=== PATIENT | male | born 1935 | race Caucasian/White ===

== ENCOUNTER → 2016-09-15 | Outpatient (CLI) | payer MEDICARE, BC ==
[~2016-09-15] MED LIST: ALLEGRA60 MG PO; AMOXICILLIN/CLA1 TA1 PO; ASPIRIN 32325 MG/TAB PO; B-COMPLEX PLUS1 TAB PO; CARDI-OMEGA1000 MG PO; CELEBREX PO; CEPHALEXIN250 M1 PO; CEPHALEXIN500 M1 PO; CO Q-1050 MG PO; COUMADIN7.5 MG PO; GABAPENTIN100 MG PO; LEVOTHYROXINE PO; MUCINEX600 M1 PO; OSTEO-BI-FLEX 21 TAB PO; PHENERGAN1.25 MG/ML PO; PRILOSEC 20MG20 MG PO; SIMVASTATIN40 MG PO; TAMIFLU75 MG PO; THYROID; TYLENOL PM 5001 CAP PO; [UNRECOGNIZED DRUG - OTHER]
== END ==
LOC: COL.RAD 08:15
DX: M50.21 Other cervical disc displacement, high cervical region (principal)

== ENCOUNTER → 2016-12-10 | Outpatient (CLI) | payer MEDICARE, BC | LOC: COL.RAD 12-01 12:45 | DX: R22.41 Localized swelling, mass and lump, right lower limb (principal) ==

== ENCOUNTER 2017-04-13 17:07 | Emergency (ER) | payer MEDICARE, BC ==
[~2017-04-13] VITALS: Ht 180.3 cm; Wt 98.2 kg
[2017-04-13 17:11] VITALS: BP 128/76; TEMP 98.1
[2017-04-13] MEDS ORDERED: NORVASC 5MG5 MG/TAB PO (17:48)
[2017-04-13] MEDS ORDERED: CYMBALTA 60MG60 MG PO (17:48)
[2017-04-13] MEDS ORDERED: PLAVIX 75MG TAB75 MG PO (17:48)
[2017-04-13 18:24] VITALS: PULSE 52
== END 2017-04-13 18:24 | disposition home or self-care (01) ==
LOC: COL.ER 17:07
DX: S01.02XA Laceration with foreign body of scalp, initial encounter (principal); I10 Essential (primary) hypertension; E03.9 Hypothyroidism, unspecified; Z79.82 Long term (current) use of aspirin; Z79.02 Long term (current) use of antithrombotics/antiplatelets; Z23 Encounter for immunization; W01.198A Fall on same level from slipping, tripping and stumbling with subsequent striking against other object, initial encounter; Y92.009 Unspecified place in unspecified non-institutional (private) residence as the place of occurrence of the external cause

== ENCOUNTER 2017-04-21 14:32 | Emergency (ER) | payer MEDICARE, BC ==
[~2017-04-21 14:32] MED LIST changes: +CYMBALTA 60MG60 MG PO; -LEVOTHYROXINE PO; +NORVASC 5MG5 MG/TAB PO; +PLAVIX 75MG TAB75 MG PO; +SYNTHROID0.2 MG/TAB PO
[2017-04-21 14:35] VITALS: BP 176/83; PULSE 53; TEMP 98.1
== END 2017-04-21 14:40 | disposition home or self-care (01) ==
LOC: COL.ER 14:32
DX: S01.01XD Laceration without foreign body of scalp, subsequent encounter (principal); X58.XXXD Exposure to other specified factors, subsequent encounter

== ENCOUNTER 2017-05-17 15:21 | Emergency (ER) | payer MEDICARE, BC ==
[~2017-05-17] VITALS: Ht 180.3 cm; Wt 98.2 kg
[2017-05-17 15:24] VITALS: BP 158/80; TEMP 97.9
[2017-05-17] MEDS ORDERED: ASPIRIN 81M81 MG/TA2 PO (15:53)
[2017-05-17] MEDS ORDERED: ULTRAM 50MG TAB50 MG PO (15:54)
[2017-05-17] MEDS ORDERED: CELEBREX 1100 MG/CAP PO (15:55)
[2017-05-17] MEDS ORDERED: ZOVIRAX800 MG PO (15:56)
[2017-05-17] MEDS ORDERED: NORCO 325 MG-101 TAB PO (15:57)
[2017-05-17 16:18] LABS: BASO % 0.4 % (0.0-2.0); EOS # 0.1 (0.0-0.7); EOS % 1.8 % (0-4.0); GRAN # 4.5 (1.4-6.5); GRAN % 63.8 % (42.2-75.2); HEMATOCRIT 43.7 % (42.0-52.0); HEMOGLOBIN 14.9 g/dl (13.5-18.0); LYMPH # 1.7 (1.2-3.4); LYMPH % 24.5 % (20.0-51.0); MEAN CELL VOLUME 93 fl (80.0-100.0); MEAN CORPUSCULAR HEMOGLOBIN 32 pg (27.0-31.0); MEAN CORPUSCULAR HGB CONC 34 g/dl (33.0-37.0); MEAN PLATELET VOLUME 9.5 fl (7.4-10.4); MONO # 0.7 (0.1-0.6); MONO % 9.2 % (1.7-9.3); PLATELET COUNT 218 K/mm3 (130-400); RED BLOOD COUNT 4.68 M/mm3 (4.20-5.60); WHITE BLOOD COUNT 7.1 K/mm3 (4.8-10.8)
[2017-05-17 16:24] LABS: ANION GAP 9 mmol/L (7-16); BLOOD UREA NITROGEN 31 mg/dL (9-20); C-REACTIVE PROTEIN < 0.5 mg/dL (0.0-0.9); CALCIUM 9.5 mg/dL (8.4-10.2); CARBON DIOXIDE 22 mmol/L (22-30); CHLORIDE 106 mmol/L (98-107); CREATININE, serum 1.33 mg/dL (0.66-1.25); GLUCOSE 110 mg/dL (74-106); POTASSIUM 4.4 mmol/L (3.4-5.0); SODIUM 137 mmol/L (137-145)
[2017-05-17 16:40] LABS: ERYTHROCYTE SEDIMENTATION RATE 5 mm/hr (0-30)
[2017-05-17] MEDS ORDERED: PREDNISONE20 MG PO (16:54)
[2017-05-17] MEDS ORDERED: PERCOCET 325 MG1 TA2 PO (16:54)
[2017-05-17 17:10] VITALS: PULSE 56
== END 2017-05-17 17:10 | disposition home or self-care (01) ==
LOC: COL.ER 15:21
PROVIDERS: Emergency Medicine
DX: M79.2 Neuralgia and neuritis, unspecified (principal); I10 Essential (primary) hypertension
CPT/HCPCS: J7512

== ENCOUNTER → 2017-05-27 | Outpatient (CLI) | payer MEDICARE, BC ==
[~2017-05-27] MED LIST changes: +ASPIRIN 81M81 MG/TA2 PO; +CELEBREX 1100 MG/CAP PO; +NORCO 325 MG-101 TAB PO; +PERCOCET 325 MG1 TA2 PO; +PREDNISONE20 MG PO; +ULTRAM 50MG TAB50 MG PO; +ZOVIRAX800 MG PO
== END ==
LOC: COL.RAD 06:57
DX: G31.9 Degenerative disease of nervous system, unspecified (principal); I67.82 Cerebral ischemia; S09.90XA Unspecified injury of head, initial encounter
CPT/HCPCS: A9585

== ENCOUNTER → 2017-07-14 | Outpatient (CLI) | payer MEDICARE, BC | LOC: MHCPAIN 10:49 | DX: G89.29 Other chronic pain (principal); M50.11 Cervical disc disorder with radiculopathy, high cervical region; R51 Headache; M54.81 Occipital neuralgia; M19.049 Primary osteoarthritis, unspecified hand | CPT/HCPCS: G0463 ==

== ENCOUNTER → 2017-07-17 | Outpatient (CLI) | payer MEDICARE, BC ==
[~2017-07-17] MED LIST changes: +BENADRYL25 M2 PO; +FD GARD PO; +FISH OIL 500 M1 EAC1 PO; +FLONASEALLERGY NS; +GAS RELIEF180 MG PO; +ISTALOL 2.5 ML2.5 ML OU; +MULTI VITAMINS1 TAB PO; +NEILMED SINUS R1 PKT NAS; +PATANOL OPHTHALM5 ML OU; +XALATAN EYE DROPS OS; +ZANTAC 300300 MG PO
== END ==
LOC: MHCPAIN 08:06
DX: M54.81 Occipital neuralgia (principal)
CPT/HCPCS: J1100

== ENCOUNTER 2017-07-21 07:07 | Day surgery (SDC) | payer MEDICARE, BC ==
[~2017-07-21] VITALS: Ht 180.3 cm; Wt 99.6 kg
[~2017-07-21 07:07] MED LIST changes: -BENADRYL25 M2 PO; -FD GARD PO; -FISH OIL 500 M1 EAC1 PO; -FLONASEALLERGY NS; -GAS RELIEF180 MG PO; -ISTALOL 2.5 ML2.5 ML OU; -MULTI VITAMINS1 TAB PO; -NEILMED SINUS R1 PKT NAS; -PATANOL OPHTHALM5 ML OU; -XALATAN EYE DROPS OS; -ZANTAC 300300 MG PO
[2017-07-21] MEDS ORDERED: ISTALOL 2.5 ML2.5 ML OU (07:32)
[2017-07-21] MEDS ORDERED: PATANOL OPHTHALM5 ML OU (07:33)
[2017-07-21] MEDS ORDERED: XALATAN EYE DROPS OS (07:33)
[2017-07-21] MEDS ORDERED: ZANTAC 300300 MG PO (07:34)
[2017-07-21] MEDS ORDERED: FLONASEALLERGY NS (07:36)
[2017-07-21] MEDS ORDERED: BENADRYL25 M2 PO (07:37)
[2017-07-21] MEDS ORDERED: NEILMED SINUS R1 PKT NAS (07:37)
[2017-07-21] MEDS ORDERED: FISH OIL 500 M1 EAC1 PO (07:39)
[2017-07-21] MEDS ORDERED: MULTI VITAMINS1 TAB PO (07:40)
[2017-07-21] MEDS ORDERED: GAS RELIEF180 MG PO (07:40)
[2017-07-21] MEDS ORDERED: FD GARD PO (07:44)
[2017-07-21 08:07] VITALS: BP 142/83; PULSE 63; TEMP 97.7
[2017-07-21 09:35] VITALS: BP 121/75; PULSE 57; TEMP 97.7
[2017-07-21 09:50] VITALS: BP 120/67; PULSE 58
[2017-07-21 10:05] VITALS: BP 101/62; PULSE 57
[2017-07-21 10:20] VITALS: BP 124/62; PULSE 58
[2017-07-21 10:24] VITALS: BP 126/79; PULSE 55
== END 2017-07-21 11:00 | disposition home or self-care (01) ==
LOC: SDCO 07:07
DX: D12.3 Benign neoplasm of transverse colon (principal); D12.4 Benign neoplasm of descending colon; D12.5 Benign neoplasm of sigmoid colon; K57.30 Diverticulosis of large intestine without perforation or abscess without bleeding; K64.0 First degree hemorrhoids; K21.9 Gastro-esophageal reflux disease without esophagitis; K30 Functional dyspepsia; Z86.010 Personal history of colon polyps; K31.7 Polyp of stomach and duodenum; K22.2 Esophageal obstruction; K44.9 Diaphragmatic hernia without obstruction or gangrene
CPT/HCPCS: OP; C1726; J2250; J3010; J7030

== ENCOUNTER → 2017-07-31 | Outpatient (CLI) | payer MEDICARE, BC ==
[~2017-07-31] MED LIST changes: +BENADRYL25 M2 PO; +FD GARD PO; +FISH OIL 500 M1 EAC1 PO; +FLONASEALLERGY NS; +GAS RELIEF180 MG PO; +ISTALOL 2.5 ML2.5 ML OU; +MULTI VITAMINS1 TAB PO; +NEILMED SINUS R1 PKT NAS; +PATANOL OPHTHALM5 ML OU; +XALATAN EYE DROPS OS; +ZANTAC 300300 MG PO
== END ==
LOC: MHCPAIN 08:58
DX: G89.29 Other chronic pain (principal); M50.11 Cervical disc disorder with radiculopathy, high cervical region; M54.81 Occipital neuralgia
CPT/HCPCS: G0463

== ENCOUNTER → 2017-08-05 | Outpatient (CLI) | payer MEDICARE, BC | LOC: MHCPAIN 08:29 | DX: M54.81 Occipital neuralgia (principal) | CPT/HCPCS: J1040 ==

== ENCOUNTER → 2017-09-30 | Outpatient (CLI) | payer MEDICARE, BC | LOC: MHCPAIN 09:02 | DX: G89.29 Other chronic pain (principal); M50.30 Other cervical disc degeneration, unspecified cervical region; M54.81 Occipital neuralgia | CPT/HCPCS: G0463 ==

== ENCOUNTER → 2017-11-03 | Outpatient (CLI) | payer MEDICARE, BC | LOC: COL.VAS 14:29 | DX: M79.662 Pain in left lower leg (principal); R60.9 Edema, unspecified ==

== ENCOUNTER → 2017-12-29 | Outpatient (CLI) | payer MEDICARE, BC | LOC: COL.RAD 10:14 | DX: M47.812 Spondylosis without myelopathy or radiculopathy, cervical region (principal); M43.12 Spondylolisthesis, cervical region ==

== ENCOUNTER → 2017-12-29 | Outpatient (CLI) | payer MEDICARE, BC | LOC: MHCPAIN 09:15 | DX: G89.29 Other chronic pain (principal); M50.31 Other cervical disc degeneration, high cervical region; M54.12 Radiculopathy, cervical region; M54.81 Occipital neuralgia; R51 Headache | CPT/HCPCS: G0463 ==

== ENCOUNTER → 2018-01-27 | Outpatient (CLI) | payer MEDICARE, BC | LOC: MHCPAIN 14:55 | DX: G89.29 Other chronic pain (principal); M50.90 Cervical disc disorder, unspecified, unspecified cervical region; M54.81 Occipital neuralgia; R51 Headache | CPT/HCPCS: G0463 ==

== ENCOUNTER 2018-03-12 17:48 | Emergency (ER) | payer MEDICARE, BC ==
[~2018-03-12] VITALS: Ht 180.3 cm; Wt 98.2 kg
[2018-03-12 17:54] VITALS: TEMP 97.7
[2018-03-12] MEDS ORDERED: ALTACE 2.5MG T2.5 MG PO (18:34)
[2018-03-12] MEDS ORDERED: LIVALO4 MG PO (18:35)
[2018-03-12 19:45] VITALS: BP 175/98; PULSE 48
== END 2018-03-12 19:45 | disposition home or self-care (01) ==
LOC: COL.ER 17:48
DX: S43.402A Unspecified sprain of left shoulder joint, initial encounter (principal); S80.02XA Contusion of left knee, initial encounter; S80.01XA Contusion of right knee, initial encounter; K21.9 Gastro-esophageal reflux disease without esophagitis; E78.5 Hyperlipidemia, unspecified; E03.9 Hypothyroidism, unspecified; Z96.653 Presence of artificial knee joint, bilateral; Z79.82 Long term (current) use of aspirin; Z79.891 Long term (current) use of opiate analgesic; W01.0XXA Fall on same level from slipping, tripping and stumbling without subsequent striking against object, initial encounter; Y92.009 Unspecified place in unspecified non-institutional (private) residence as the place of occurrence of the external cause

== ENCOUNTER → 2018-05-11 | Outpatient (CLI) | payer MEDICARE, BC ==
[~2018-05-11] MED LIST changes: +ALTACE 2.5MG T2.5 MG PO; +LIVALO4 MG PO
== END ==
LOC: COL.RAD 09:04
DX: M54.41 Lumbago with sciatica, right side (principal)
CPT/HCPCS: J3301; Q9967

== ENCOUNTER → 2018-06-01 | Outpatient (CLI) | payer MEDICARE, BC | LOC: COL.RAD 12:01 | DX: S76.811A Strain of other specified muscles, fascia and tendons at thigh level, right thigh, initial encounter (principal) ==

== ENCOUNTER → 2018-06-08 | Outpatient (CLI) | payer MEDICARE, BC | LOC: COL.RAD 14:08 | DX: M25.551 Pain in right hip (principal) | CPT/HCPCS: J3301; Q9967 ==

== ENCOUNTER 2018-07-06 14:43 | Inpatient (IN) | payer MEDICARE, BC ==
[~2018-07-06] VITALS: Ht 180.3 cm; Wt 101.5 kg
[2018-07-06 15:15] LABS: BASO % 0.5 % (0.0-2.0); EOS # 0.2 (0.0-0.7); GRAN # 4.6 (1.4-6.5); GRAN % 58.2 % (42.2-75.2); HEMOGLOBIN 13.8 g/dl (13.5-18.0); LYMPH # 1.9 (1.2-3.4); LYMPH % 24.2 % (20.0-51.0); MEAN CELL VOLUME 95 fl (80.0-100.0); MEAN CORPUSCULAR HEMOGLOBIN 33 pg (27.0-31.0); MEAN CORPUSCULAR HGB CONC 35 g/dl (33.0-37.0); MONO # 1.2 (0.1-0.6); MONO % 14.8 % (1.7-9.3); PLATELET COUNT 184 K/mm3 (130-400); RED BLOOD COUNT 4.21 M/mm3 (4.20-5.60); REDCELL DISTRIBUTION WIDTH-CV 13.8 % (11.5-14.5)
[2018-07-06 15:26] LABS: PROTHROMBIN TIME 10.9 SECONDS (9.7-12.8)
[2018-07-06] MEDS ORDERED: HCTZ12.5TAB PO (15:26)
[2018-07-06] MEDS ORDERED: COZAAR 50MG50 MG/TAB PO (15:26)
[2018-07-06 15:30] LABS: ALANINE AMINOTRANSFERASE 13 U/L (21-72); ALBUMIN 3.8 gm/dL (3.5-5.0); ALKALINE PHOSPHATASE 60 U/L (50-136); ANION GAP 6 mmol/L (7-16); AST,SGOT 21 U/L (15-37); BILIRUBIN,TOTAL 0.5 mg/dL (0.0-1.0); BLOOD UREA NITROGEN 28 mg/dL (9-20); CALCIUM 9.1 mg/dL (8.4-10.2); CARBON DIOXIDE 27 mmol/L (22-30); CHLORIDE 105 mmol/L (98-107); CREATINE KINASE 61 U/L (55-170); CREATININE, serum 1.06 mg/dL (0.66-1.25); GLUCOSE 105 mg/dL (74-106); LIPASE 120 U/L (23-300); POTASSIUM 3.8 mmol/L (3.4-5.0); SODIUM 138 mmol/L (137-145); TOTAL PROTEIN 6.8 gm/dL (6.4-8.2)
[2018-07-06 15:42] LABS: TROPONIN-I < 0.012 ng/mL (0.000-0.034)
[2018-07-06 19:12] VITALS: BP 143/69; PULSE 60; TEMP 97.1
[2018-07-06 19:25] VITALS: BP 124/61; PULSE 92; TEMP 98
[2018-07-06] MEDS ORDERED: AMOXICILLIN875 MG PO (19:33)
--- NOTE | 2018-07-06 19:59 | NUR ---
Transferred to Medical floor from ED. at bedside. Assessment complete. Right lower lobe diminished, otherwise clear. Heart sounds normal. Pulses strong. Denies pain at this time. Provided sandwhich. Denies other needs. Call light in reach.
[2018-07-06 23:33] VITALS: BP 130/68; PULSE 61; TEMP 99.5
--- NOTE | 2018-07-07 00:15 | NUR ---
Report right lower chest pain. Upon assessment right base diminished. Pain with deep breathing. Saturation 88% on room air. Placed on 2 liters nasal cannula and provided PRN tylenol. Saturation increased to 94%. Will monitor.
--- NOTE | 2018-07-07 03:29 | NUR ---
Resting in bed asleep. Call light in reach.
[2018-07-07 03:44] VITALS: BP 119/61; PULSE 62; TEMP 99.8
[2018-07-07 06:00] LABS: BASO % 0.4 % (0.0-2.0); EOS # 0.1 (0.0-0.7); GRAN # 5.4 (1.4-6.5); GRAN % 66.9 % (42.2-75.2); HEMATOCRIT 39.5 % (42.0-52.0); HEMOGLOBIN 13.3 g/dl (13.5-18.0); LYMPH # 1.4 (1.2-3.4); MEAN CELL VOLUME 96 fl (80.0-100.0); MEAN CORPUSCULAR HEMOGLOBIN 32 pg (27.0-31.0); MEAN CORPUSCULAR HGB CONC 34 g/dl (33.0-37.0); MEAN PLATELET VOLUME 10.3 fl (7.4-10.4); MONO # 1.1 (0.1-0.6); MONO % 13.4 % (1.7-9.3); PLATELET COUNT 179 K/mm3 (130-400); RED BLOOD COUNT 4.12 M/mm3 (4.20-5.60); REDCELL DISTRIBUTION WIDTH-CV 13.7 % (11.5-14.5)
[2018-07-07 06:13] LABS: CALCIUM 8.6 mg/dL (8.4-10.2); CREATININE, serum 0.94 mg/dL (0.66-1.25); POTASSIUM 3.7 mmol/L (3.4-5.0)
--- NOTE | 2018-07-07 06:14 | NUR ---
Resting in bed this AM. Required oxygen to improve pain while breathing. Currently on 2 liters nasal cannula. Otherwise uneventful night.
[2018-07-07 08:04] VITALS: BP 137/66; PULSE 63; TEMP 99
--- NOTE | 2018-07-07 08:45 | NUR ---
Pt assessment complete. Pt returning to bed from the bathroom at this time. Pt reports dyspnea on exertion, ok at rest. Reports pain to mid back with inspiration, PRN Tylenol administered. POC discussed with patient who verbalizes understanding. at bedside. Will continue to monitor.
[2018-07-07 11:48] VITALS: BP 138/75; PULSE 62; TEMP 97.7
--- NOTE | 2018-07-07 12:16 | NUR ---
First visit from the healthcare sales representative. No needs right now.
[2018-07-07 13:27] LABS: FOLATE (FOLIC ACID) 15.1 ng/mL (7.0-31.4)
--- NOTE | 2018-07-07 14:56 | NUR ---
SW attended clinical rounding and met with patient to discuss discharge planning. Patient lives with his Sameera in [place]. His PCP is dr Sascha Scott and he obtains his medications from [facility]. Patient does not currently have any anticipated discharge needs however payal will continue to follow.
[2018-07-07 16:26] VITALS: BP 134/69; PULSE 61; TEMP 98.2
--- NOTE | 2018-07-07 18:17 | NUR ---
Pt had uneventful day. Had EGD, tolerated PO well after. POC discussed with patient who will remain NPO after midnight for dialysis catheter placement. Pt taken off of contact precautions. Denies needs at this time. Call light within reach.
--- NOTE | 2018-07-07 18:21 | NUR ---
Pt had uneventful day had intermittent pain to mid back. SOB improved. VSS. No needs at this time. Call light within reach.
[2018-07-07 19:31] VITALS: BP 141/67; PULSE 65; TEMP 98.8
--- NOTE | 2018-07-07 21:23 | NUR ---
Completed shift assessment and medcation administration; PT denied pain at time of assessment. PT tolerated medications well; IV RFA with NS at 125; no S/S of infiltration or reported discomfort. PT A&Ox3, lungs diminished throughout, BS active without reported BM; TELE in place; PT denied further needs at time of exit from room; Call light placed within reach; Will continue to monitor. CDA
[2018-07-08] VITALS: BP 135/62; PULSE 64; TEMP 99.8
[2018-07-08 03:45] VITALS: BP 147/74; PULSE 62; TEMP 99.3
--- NOTE | 2018-07-08 06:03 | NUR ---
No significant change or concerns during shift; PT rested well throughout night; IV replaced to LFA with NC at 125mL/hr. PT denies pain and discomfort; Call light placed within reach; Report given to house and charge; Will report to dayshift within the hour. CDA
[2018-07-08 08:20] VITALS: BP 146/76; PULSE 63; TEMP 98.1
[2018-07-08] MEDS ORDERED: ELIQUIS 5MG PO (09:13)
--- NOTE | 2018-07-08 09:35 | NUR ---
Assessment complete.patient awake,a/ox4.denies pain or discomfort at this time.LSCTA.oxygen at 2l/nc.VSS.INT to LFA.meds adjusted for discharge.patient denies any other concerns at this time.call light in reach
--- NOTE | 2018-07-08 10:45 | NUR ---
SW met with patient during clinical rounding. Patient will be dc today with and no unmet needs.
--- NOTE | 2018-07-08 11:57 | NUR ---
PATIENT DISCHARGE AT THIS TIME.ALL DISCHARGE INSTRUCTIONS REVIEWED.ALL EDUCATION PROVIDED AND EDUCATION PACKAGE GIVEN.PAPERWORK SIGNED.THIS RN REINFORCED EDUCATION ON ELIQUIS.IV AND TELEMETRY DISCONTINUED.ALL QUESTIONS ANSWERED.SHELBY VAUGHN ESCORTED PATIENT OUT TO VEHICLE
== END 2018-07-08 12:01 | disposition home or self-care (01) | DRG 176 ==
LOC: COL.ER 14:43 → MEDICAL 17:49
PROVIDERS: Emergency Medicine; ADMIT Internal Medicine
DX: I26.99 Other pulmonary embolism without acute cor pulmonale (principal); I10 Essential (primary) hypertension; J02.0 Streptococcal pharyngitis; K22.70 Barrett's esophagus without dysplasia; E78.5 Hyperlipidemia, unspecified; Z86.718 Personal history of other venous thrombosis and embolism; Z79.01 Long term (current) use of anticoagulants
CPT/HCPCS: 99223-AI; 99232-AI; 99239; J1650; J2270; J7030; Q9967

== ENCOUNTER 2018-07-14 12:34 | Emergency (ER) | payer MEDICARE, BC ==
[~2018-07-14] VITALS: Ht 182.9 cm; Wt 98.2 kg
[~2018-07-14 12:34] MED LIST changes: +AMOXICILLIN875 MG PO; +COZAAR 50MG50 MG/TAB PO; +ELIQUIS 5MG PO; +HCTZ12.5TAB PO
[2018-07-14 12:36] VITALS: TEMP 98.4
[2018-07-14 13:06] LABS: BASO % 0.5 % (0.0-2.0); EOS # 0.2 (0.0-0.7); EOS % 2.3 % (0-4.0); GRAN # 5.8 (1.4-6.5); GRAN % 65.1 % (42.2-75.2); HEMATOCRIT 40.3 % (42.0-52.0); HEMOGLOBIN 13.6 g/dl (13.5-18.0); MEAN CELL VOLUME 96 fl (80.0-100.0); MEAN CORPUSCULAR HEMOGLOBIN 32 pg (27.0-31.0); MEAN CORPUSCULAR HGB CONC 34 g/dl (33.0-37.0); MEAN PLATELET VOLUME 9.3 fl (7.4-10.4); MONO # 0.9 (0.1-0.6); MONO % 9.6 % (1.7-9.3); PLATELET COUNT 294 K/mm3 (130-400); REDCELL DISTRIBUTION WIDTH-CV 13.4 % (11.5-14.5)
[2018-07-14 13:10] LABS: INR 1.6 (0.8-3.0); PROTHROMBIN TIME 17.7 SECONDS (9.7-12.8)
[2018-07-14 13:13] LABS: PARTIAL THROMBOPLASTIN TIME 37.3 SECONDS (26.0-37.0)
[2018-07-14 13:20] LABS: ALANINE AMINOTRANSFERASE 33 U/L (21-72); ALBUMIN 3.7 gm/dL (3.5-5.0); ALKALINE PHOSPHATASE 62 U/L (50-136); ANION GAP 6 mmol/L (7-16); AST,SGOT 28 U/L (15-37); BILIRUBIN,TOTAL 0.5 mg/dL (0.0-1.0); BLOOD UREA NITROGEN 31 mg/dL (9-20); CARBON DIOXIDE 28 mmol/L (22-30); CHLORIDE 106 mmol/L (98-107); GLUCOSE 88 mg/dL (74-106); LIPASE 83 U/L (23-300); POTASSIUM 4.2 mmol/L (3.4-5.0); SODIUM 140 mmol/L (137-145); TOTAL PROTEIN 6.9 gm/dL (6.4-8.2)
[2018-07-14 13:36] LABS: TROPONIN-I < 0.012 ng/mL (0.000-0.034)
[2018-07-14 17:18] VITALS: BP 163/86; PULSE 54
== END 2018-07-14 17:22 | disposition home or self-care (01) ==
LOC: COL.ER 12:34
PROVIDERS: Emergency Medicine
DX: R07.81 Pleurodynia (principal); E03.9 Hypothyroidism, unspecified; E78.5 Hyperlipidemia, unspecified; Z86.711 Personal history of pulmonary embolism; Z86.718 Personal history of other venous thrombosis and embolism; Z79.82 Long term (current) use of aspirin
CPT/HCPCS: J7030; Q9967

== ENCOUNTER 2018-07-15 00:18 | Emergency (ER) | payer MEDICARE, BC ==
[~2018-07-15] VITALS: Ht 180.3 cm; Wt 98.2 kg
[2018-07-15 00:43] LABS: HEMATOCRIT 42.9 % (42.0-52.0); HEMOGLOBIN 14.4 g/dl (13.5-18.0); MEAN CELL VOLUME 96 fl (80.0-100.0); MEAN CORPUSCULAR HEMOGLOBIN 32 pg (27.0-31.0); MEAN CORPUSCULAR HGB CONC 34 g/dl (33.0-37.0); MEAN PLATELET VOLUME 9.5 fl (7.4-10.4); PLATELET COUNT 334 K/mm3 (130-400); RED BLOOD COUNT 4.47 M/mm3 (4.20-5.60); REDCELL DISTRIBUTION WIDTH-CV 13.3 % (11.5-14.5)
[2018-07-15 00:45] LABS: ARTERIAL BLD GAS O2 SATURATION 84.1 % (92-100); ARTERIAL BLD GAS TCO2 CT 22.6; ARTERIAL BLOOD GAS BASE EXCESS -0.7 (-2-2); ARTERIAL BLOOD GAS HCO3 21.7 meq/L (22-26); ARTERIAL BLOOD GAS PCO2 29.9 mmHg (35-45); ARTERIAL BLOOD GAS pH 7.48 (7.35-7.45)
[2018-07-15 00:46] LABS: ARTERIAL BLOOD GAS PO2 45.5 mmHg (80-100)
[2018-07-15 00:53] LABS: ALANINE AMINOTRANSFERASE 31 U/L (21-72); ALKALINE PHOSPHATASE 73 U/L (50-136); ANION GAP 10 mmol/L (7-16); AST,SGOT 37 U/L (15-37); BILIRUBIN,TOTAL 0.5 mg/dL (0.0-1.0); BLOOD UREA NITROGEN 33 mg/dL (9-20); C-REACTIVE PROTEIN 1.1 mg/dL (0.0-0.9); CALCIUM 9.6 mg/dL (8.4-10.2); CARBON DIOXIDE 24 mmol/L (22-30); CHLORIDE 105 mmol/L (98-107); CREATININE, serum 1.15 mg/dL (0.66-1.25); GLUCOSE 115 mg/dL (74-106); LIPASE 81 U/L (23-300); POTASSIUM 4.1 mmol/L (3.4-5.0); SODIUM 139 mmol/L (137-145); TOTAL PROTEIN 7.4 gm/dL (6.4-8.2)
[2018-07-15 01:03] LABS: TROPONIN-I < 0.012 ng/mL (0.000-0.034)
[2018-07-15 01:27] LABS: BAND 11 % (0-10); BASOPHIL 1 % (0-2); LYMPHOCYTE 16 % (20.0-51.0); NEUTROPHILS 67 % (42.0-75.2)
[2018-07-15 01:28] LABS: HYPOCHROMIA 1+; PLATELET ESTIMATE NORMAL (NORMAL)
[2018-07-15 04:50] VITALS: BP 95/55; PULSE 71; TEMP 99.6
== END 2018-07-15 04:50 | disposition short-term general hospital (02) ==
LOC: COL.ER 00:18
PROVIDERS: Emergency Medicine
DX: R09.02 Hypoxemia (principal); R50.9 Fever, unspecified; E03.9 Hypothyroidism, unspecified; Z79.82 Long term (current) use of aspirin; Z79.51 Long term (current) use of inhaled steroids; Z90.89 Acquired absence of other organs; Z90.49 Acquired absence of other specified parts of digestive tract; Z98.890 Other specified postprocedural states
CPT/HCPCS: J2405; J2543; J7030

== ENCOUNTER 2018-08-01 08:23 | Emergency (ER) | payer MEDICARE, BC ==
[~2018-08-01] VITALS: Ht 180.3 cm; Wt 99.1 kg
[2018-08-01] MEDS ORDERED: PREDNISONE 5MG5 MG PO (08:53)
[2018-08-01] MEDS ORDERED: LEVAQUIN 5500 MG/TA1 PO (08:53)
[2018-08-01 09:07] LABS: BASO % 0.4 % (0.0-2.0); EOS # 0.1 (0.0-0.7); EOS % 1.6 % (0-4.0); GRAN # 5.2 (1.4-6.5); GRAN % 62.7 % (42.2-75.2); HEMATOCRIT 43.1 % (42.0-52.0); HEMOGLOBIN 14.3 g/dl (13.5-18.0); LYMPH # 1.9 (1.2-3.4); LYMPH % 23.5 % (20.0-51.0); MEAN CELL VOLUME 97 fl (80.0-100.0); MEAN CORPUSCULAR HEMOGLOBIN 32 pg (27.0-31.0); MEAN CORPUSCULAR HGB CONC 33 g/dl (33.0-37.0); MEAN PLATELET VOLUME 9.9 fl (7.4-10.4); MONO # 0.9 (0.1-0.6); MONO % 10.5 % (1.7-9.3); PLATELET COUNT 211 K/mm3 (130-400); RED BLOOD COUNT 4.43 M/mm3 (4.20-5.60); REDCELL DISTRIBUTION WIDTH-CV 14.4 % (11.5-14.5)
[2018-08-01 09:08] LABS: INR 1.2 (0.8-3.0); PROTHROMBIN TIME 13.1 SECONDS (9.7-12.8)
[2018-08-01 09:14] LABS: ALANINE AMINOTRANSFERASE 52 U/L (21-72); ALBUMIN 3.5 gm/dL (3.5-5.0); ALKALINE PHOSPHATASE 51 U/L (50-136); ANION GAP 7 mmol/L (7-16); AST,SGOT 41 U/L (15-37); BILIRUBIN,TOTAL 0.6 mg/dL (0.0-1.0); BLOOD UREA NITROGEN 34 mg/dL (9-20); CALCIUM 9.3 mg/dL (8.4-10.2); CARBON DIOXIDE 26 mmol/L (22-30); CHLORIDE 108 mmol/L (98-107); CREATININE, serum 0.98 mg/dL (0.66-1.25); GLUCOSE 95 mg/dL (74-106); LIPASE 56 U/L (23-300); POTASSIUM 4.2 mmol/L (3.4-5.0); SODIUM 140 mmol/L (137-145); TOTAL PROTEIN 6.6 gm/dL (6.4-8.2)
[2018-08-01 09:26] LABS: TROPONIN-I < 0.012 ng/mL (0.000-0.035)
[2018-08-01 09:37] LABS: COLLECTION METHOD CLEAN CATCH
[2018-08-01 09:43] LABS: MUCOUS Present /lpf; PH 5 (5-8); SQUAMOUS EPITHELIAL None Seen /hpf; URINE APPEARANCE Hazy; URINE BACTERIA None Seen /hpf; URINE BILIRUBIN Negative (NEGATIVE); URINE BLOOD Negative (NEGATIVE); URINE COLOR Yellow; URINE GLUCOSE Negative (NEGATIVE); URINE KETONE Negative (NEGATIVE); URINE LEUKOCYTE ESTERASE Negative (NEGATIVE); URINE NITRATE Negative (NEGATIVE); URINE PROTEIN(semi-quant) Negative (NEGATIVE); URINE UROBILINOGEN Negative (NEGATIVE)
[2018-08-01 12:34] VITALS: BP 167/94; PULSE 56
== END 2018-08-01 12:43 | disposition home or self-care (01) ==
LOC: COL.ER 08:23
PROVIDERS: Emergency Medicine
DX: R07.9 Chest pain, unspecified (principal); R10.13 Epigastric pain; I10 Essential (primary) hypertension; Z79.82 Long term (current) use of aspirin; Z79.891 Long term (current) use of opiate analgesic; Z86.711 Personal history of pulmonary embolism
CPT/HCPCS: J7030

== ENCOUNTER 2018-11-06 07:59 | Emergency (ER) | payer MEDICARE, BC ==
[~2018-11-06] VITALS: Ht 180.3 cm; Wt 103.9 kg
[~2018-11-06 07:59] MED LIST changes: +LEVAQUIN 5500 MG/TA1 PO; +PREDNISONE 5MG5 MG PO
[2018-11-06 08:02] VITALS: TEMP 97.6
[2018-11-06 08:24] LABS: BASO % 0.6 % (0.0-2.0); EOS # 0.2 (0.0-0.7); EOS % 3.3 % (0-4.0); GRAN # 2.3 (1.4-6.5); GRAN % 45.1 % (42.2-75.2); HEMATOCRIT 45.7 % (42.0-52.0); HEMOGLOBIN 15.3 g/dl (13.5-18.0); LYMPH % 39.1 % (20.0-51.0); MEAN CELL VOLUME 93 fl (80.0-100.0); MEAN CORPUSCULAR HEMOGLOBIN 31 pg (27.0-31.0); MEAN CORPUSCULAR HGB CONC 34 g/dl (33.0-37.0); MEAN PLATELET VOLUME 9.7 fl (7.4-10.4); MONO # 0.6 (0.1-0.6); MONO % 11.7 % (1.7-9.3); PLATELET COUNT 210 K/mm3 (130-400); RED BLOOD COUNT 4.91 M/mm3 (4.20-5.60); REDCELL DISTRIBUTION WIDTH-CV 13.3 % (11.5-14.5)
[2018-11-06 08:30] LABS: INR 1.2 (0.8-3.0); PROTHROMBIN TIME 14.1 SECONDS (9.7-12.8)
[2018-11-06 08:32] LABS: PARTIAL THROMBOPLASTIN TIME 35.5 SECONDS (26.0-37.0)
[2018-11-06 08:35] LABS: ALANINE AMINOTRANSFERASE 14 U/L (21-72); ALBUMIN 4.2 gm/dL (3.5-5.0); ALKALINE PHOSPHATASE 56 U/L (50-136); ANION GAP 10 mmol/L (7-16); AST,SGOT 29 U/L (15-37); BILIRUBIN,TOTAL 0.5 mg/dL (0.0-1.0); BLOOD UREA NITROGEN 32 mg/dL (9-20); CALCIUM 9.9 mg/dL (8.4-10.2); CARBON DIOXIDE 24 mmol/L (22-30); CHLORIDE 110 mmol/L (98-107); CREATININE, serum 1.09 (0.66-1.25); GLUCOSE 117 mg/dL (74-106); MAGNESIUM 2.1 mg/dL (1.6-2.3); POTASSIUM 4.1 mmol/L (3.4-5.0); SODIUM 144 mmol/L (137-145); TOTAL PROTEIN 7.5 gm/dL (6.4-8.2)
[2018-11-06 08:52] LABS: TROPONIN-I < 0.012 ng/mL (0.000-0.035)
[2018-11-06 13:01] VITALS: BP 156/89; PULSE 65
== END 2018-11-06 13:03 | disposition home or self-care (01) ==
LOC: COL.ER 07:59
PROVIDERS: Emergency Medicine
DX: R51 Headache (principal); E03.9 Hypothyroidism, unspecified; R00.1 Bradycardia, unspecified; Z79.01 Long term (current) use of anticoagulants; E78.5 Hyperlipidemia, unspecified

== ENCOUNTER 2018-12-14 06:11 | Day surgery (SDC) | payer MEDICARE, BC ==
[~2018-12-14] VITALS: Ht 180.3 cm; Wt 105.7 kg
[2018-12-14] VITALS (10 sets, daily range): BP systolic 133–164; BP diastolic 76–94; PULSE 52–60; TEMP 97.7–98.6
[~2018-12-14 06:11] MED LIST changes: -ASPIRIN 81M81 MG/TA2 PO; +ASPIRIN E.C. 8181 MG PO; +ZANTAC 150MG T150 MG PO; -ZANTAC 300300 MG PO
[2018-12-14 06:41] LABS: HEMATOCRIT 44.5 % (42.0-52.0); HEMOGLOBIN 14.8 g/dl (13.5-18.0); MEAN CELL VOLUME 93 fl (80.0-100.0); MEAN CORPUSCULAR HEMOGLOBIN 31 pg (27.0-31.0); MEAN CORPUSCULAR HGB CONC 33 g/dl (33.0-37.0); MEAN PLATELET VOLUME 9.7 fl (7.4-10.4); PLATELET COUNT 215 K/mm3 (130-400); RED BLOOD COUNT 4.79 M/mm3 (4.20-5.60)
[2018-12-14 06:49] LABS: INR 0.9 (0.8-3.0); PROTHROMBIN TIME 9.9 SECONDS (9.7-12.8)
[2018-12-14 06:51] LABS: CALCIUM 9.5 mg/dL (8.4-10.2); CREATININE, serum 1.15 (0.66-1.25); POTASSIUM 4.3 mmol/L (3.4-5.0)
[2018-12-14] MEDS ORDERED: ELIQUIS 5MG PO (07:24)
[2018-12-14] MEDS ORDERED: PAZEO2.5 ML OP (07:28)
[2018-12-14] MEDS ORDERED: GAS-X ULTRA ST180 MG PO (07:33)
[2018-12-14] MEDS ORDERED: TYLENOL 500MG500 MG PO (07:34)
--- NOTE | 2018-12-14 08:45 | NUR ---
pT TO PROCEDURE.
--- NOTE | 2018-12-14 08:53 | NUR ---
SEE MERGE DOCUMENTATION FOR MEDICATION ADMINISTRATION TIMES AND INTRA/POST PROCEDURE SEDATION ASSESSMENTS.
--- NOTE | 2018-12-14 10:30 | NUR ---
Patient up to room 306, at bedside. Post op vitals monitoring in place. VSS at this time. Lt chest pacemaker site is covered with gauze, no redness or swelling. Pt denies pain. Site is CDI. Lt arm in sling. Patient instructed on bed rest, HOB elevated at 30 degrees, Lt arm restriction. Patient using bedside urinal. Denies other needs at this time. Call light within reach.
--- NOTE | 2018-12-14 13:02 | NUR ---
patient VSS, tolerating liquids and food. Patient denies pain at site. Site is CDI, no redness or swelling. Patient has good cap refill. Lt arm in sling per protocol.
--- NOTE | 2018-12-14 16:30 | NUR ---
patient resting in bed. Assisted to bathroom by this nurse. Patient ambulating well. VSS. Patient c/o some mild pain on the Lt chest. Dressing is CDI, no redness or swelling. Administered tylenol PRN per MAR. No other needs at this time.
--- NOTE | 2018-12-14 19:04 | NUR ---
Report given to BRITTANY Vergara. No other needs. patient denies pain at this time. Call light within reach.
--- NOTE | 2018-12-14 19:45 | NUR ---
Patient assessed at this time. Alert and oriented, and able to make needs known. Denies having pain and discomfort. Peripheral IV to left forearm flushed. Site is patent, and without redness, warmth, swelling, and pain. LS CTA. Denies having SOB and dyspnea. HRR. Dressing to left chest is CDI. Denies having pain and discomfort to area. Declines ice and pain medication at this time, but states he will let this nurse know if he changes his mind. BSAx4. Abdomen soft and non-tender. No edema noted. Sling to left arm. Voices no questions, needs, or concerns at this time. Resting in bed watching TV at this time. Call light is within reach.
[2018-12-15 00:05] VITALS: BP 157/82; PULSE 59; TEMP 98.3
[2018-12-15 06:15] LABS: BASO % 0.5 % (0.0-2.0); EOS # 0.3 (0.0-0.7); EOS % 3.3 % (0-4.0); GRAN # 4.3 (1.4-6.5); GRAN % 56.3 % (42.2-75.2); HEMATOCRIT 44.9 % (42.0-52.0); LYMPH # 1.9 (1.2-3.4); LYMPH % 25.7 % (20.0-51.0); MEAN CELL VOLUME 92 fl (80.0-100.0); MEAN CORPUSCULAR HEMOGLOBIN 31 pg (27.0-31.0); MEAN CORPUSCULAR HGB CONC 33 g/dl (33.0-37.0); MONO # 1.1 (0.1-0.6); MONO % 13.9 % (1.7-9.3); PLATELET COUNT 208 K/mm3 (130-400); RED BLOOD COUNT 4.87 M/mm3 (4.20-5.60); REDCELL DISTRIBUTION WIDTH-CV 13.9 % (11.5-14.5)
--- NOTE | 2018-12-15 06:19 | NUR ---
Patient has been resting in bed with eyes closed most of the night. Has denied having pain and discomfort throughout the night. Dressing to left chest is CDI. Continues to wear sling to left arm. Voices no questions, needs, or concerns. Resting in bed with call light within reach.
[2018-12-15 06:28] VITALS: BP 153/80; PULSE 61; TEMP 98.3
[2018-12-15 06:29] LABS: CALCIUM 9.2 mg/dL (8.4-10.2); CREATININE, serum 1.09 (0.66-1.25); POTASSIUM 4.5 mmol/L (3.4-5.0)
--- NOTE | 2018-12-15 07:18 | NUR ---
Report given to day shift nurse.
[2018-12-15 07:49] VITALS: BP 145/76; PULSE 60; TEMP 98.1
--- NOTE | 2018-12-15 08:40 | NUR ---
PT AM MEDS ADMINSTERED. PT HAS SLIGHT C/O PAIN. DENIED NEED FOR ICE PACK. DID REQUEST TYLENOL. STATED THAT IT WAS STARTING TO WAKE UP BUT NOT BAD YET WANTED TO STAY ON TOP OF.
--- NOTE | 2018-12-15 09:16 | NUR ---
Initial visit; Patient and his thanked Anchorman for looking in on him and offering spiritual care.
[2018-12-15 11:21] VITALS: BP 100/61; PULSE 60; TEMP 98.1
--- NOTE | 2018-12-15 11:30 | NUR ---
PT DISCHARGE INFORMATION AND EDUCATION PROVIDED AT THIS TIME. IV REMOVED. PT GOING TO GET DRESSSED AND LET US KNOW WHEN HE IS READY TO GO HOME.
[2018-12-15] MEDS ORDERED: CEPHALEXIN500 M1 PO (11:57)
[2018-12-15] MEDS ORDERED: ZEBETA 5MG5 MG PO (11:59)
--- NOTE | 2018-12-15 12:30 | NUR ---
THIS NURSE ESCORTED PT OUT OF FACILITY AT THIS TIME. DRIVING PATIENT HOME. PT STATED THAT HE NO LONGER FEELS DIZZY WHEN HE STANDS UP AND VOICED THAT HE IS GLAD OF THAT.
--- NOTE | 2018-12-15 14:53 | NUR ---
SW unable to meet with patient before discharge.
== END 2018-12-15 12:30 | disposition home or self-care (01) ==
LOC: COL.CAR 06:11 → MEDICAL 10:22 → COL.CAR 12-15 12:30
PROVIDERS: Internal Medicine Cardiovascular Disease; Nurse Practitioner
DX: I44.1 Atrioventricular block, second degree (principal); R00.1 Bradycardia, unspecified; Z86.73 Personal history of transient ischemic attack (TIA), and cerebral infarction without residual deficits; K21.9 Gastro-esophageal reflux disease without esophagitis; H40.9 Unspecified glaucoma; E78.5 Hyperlipidemia, unspecified; Z86.718 Personal history of other venous thrombosis and embolism; Z79.899 Other long term (current) drug therapy; E89.0 Postprocedural hypothyroidism; G89.29 Other chronic pain; M25.512 Pain in left shoulder; M25.511 Pain in right shoulder; R13.10 Dysphagia, unspecified; H35.30 Unspecified macular degeneration; Z84.1 Family history of disorders of kidney and ureter; Z82.49 Family history of ischemic heart disease and other diseases of the circulatory system; Z80.9 Family history of malignant neoplasm, unspecified; Z82.5 Family history of asthma and other chronic lower respiratory diseases
CPT/HCPCS: OP; J0690; J2250; J3010; J7030; Q9967

== ENCOUNTER 2019-02-22 12:39 | Emergency (ER) | payer MEDICARE, BC ==
[~2019-02-22] VITALS: Ht 180.3 cm; Wt 95.5 kg
[~2019-02-22 12:39] MED LIST changes: +GAS-X ULTRA ST180 MG PO; +PAZEO2.5 ML OP; +TYLENOL 500MG500 MG PO; +ZEBETA 5MG5 MG PO
[2019-02-22 12:52] VITALS: BP 131/76; TEMP 97.7
[2019-02-22] MEDS ORDERED: CEPHALEXIN500 M1 PO (15:52)
[2019-02-22 16:30] VITALS: PULSE 87
== END 2019-02-22 16:40 | disposition home or self-care (01) ==
LOC: COL.ER 12:39
DX: S61.210A Laceration without foreign body of right index finger without damage to nail, initial encounter (principal); Z79.82 Long term (current) use of aspirin; W26.8XXA Contact with other sharp object(s), not elsewhere classified, initial encounter; Y92.009 Unspecified place in unspecified non-institutional (private) residence as the place of occurrence of the external cause

== ENCOUNTER 2019-03-03 10:13 | Emergency (ER) | payer MEDICARE, BC ==
[2019-03-03 10:16] VITALS: BP 166/78; PULSE 61; TEMP 97.4
== END 2019-03-03 10:31 | disposition home or self-care (01) ==
LOC: COL.ER 10:13
DX: Z48.02 Encounter for removal of sutures (principal)

== ENCOUNTER 2019-04-22 17:25 | Emergency (ER) | payer MEDICARE, BC ==
[~2019-04-22] VITALS: Ht 180.3 cm; Wt 100.0 kg
[2019-04-22 17:34] VITALS: TEMP 97.5
[2019-04-22 18:25] LABS: BASO % 0.4 % (0.0-2.0); EOS # 0.3 (0.0-0.7); EOS % 3.4 % (0-4.0); GRAN # 4.1 (1.4-6.5); GRAN % 54.7 % (42.2-75.2); HEMOGLOBIN 14.5 g/dl (13.5-18.0); LYMPH # 2.1 (1.2-3.4); LYMPH % 28.3 % (20.0-51.0); MEAN CELL VOLUME 92 fl (80.0-100.0); MEAN CORPUSCULAR HEMOGLOBIN 31 pg (27.0-31.0); MEAN CORPUSCULAR HGB CONC 34 g/dl (33.0-37.0); MEAN PLATELET VOLUME 9.9 fl (7.4-10.4); MONO % 12.9 % (1.7-9.3); PLATELET COUNT 231 K/mm3 (130-400); REDCELL DISTRIBUTION WIDTH-CV 13.2 % (11.5-14.5)
[2019-04-22 18:32] LABS: INR 1.2 (0.8-3.0); PROTHROMBIN TIME 13.9 SECONDS (9.7-12.8)
[2019-04-22 18:35] LABS: PARTIAL THROMBOPLASTIN TIME 33.9 SECONDS (26.0-37.0)
[2019-04-22 18:36] LABS: ALBUMIN 4.4 gm/dL (3.5-5.0); BILIRUBIN,TOTAL 0.6 mg/dL (0.0-1.0); CALCIUM 10.2 mg/dL (8.4-10.2); CREATININE, serum 1.34 (0.66-1.25); POTASSIUM 4.5 mmol/L (3.4-5.0)
[2019-04-22 19:42] VITALS: BP 137/89; PULSE 61
== END 2019-04-22 19:42 | disposition short-term general hospital (02) ==
LOC: COL.ER 17:25
PROVIDERS: Emergency Medicine
DX: S06.5X0A Traumatic subdural hemorrhage without loss of consciousness, initial encounter (principal); E78.5 Hyperlipidemia, unspecified; K21.9 Gastro-esophageal reflux disease without esophagitis; R40.2412 Glasgow coma scale score 13-15, at arrival to emergency department; Z79.82 Long term (current) use of aspirin; Z86.718 Personal history of other venous thrombosis and embolism; Z79.01 Long term (current) use of anticoagulants; W19.XXXA Unspecified fall, initial encounter; W22.8XXA Striking against or struck by other objects, initial encounter; Y92.009 Unspecified place in unspecified non-institutional (private) residence as the place of occurrence of the external cause
CPT/HCPCS: C9132; J1953; J7050

== ENCOUNTER → 2019-04-22 | Outpatient (CLI) | payer MEDICARE, BC | LOC: COL.RAD 15:13 | DX: G44.319 Acute post-traumatic headache, not intractable (principal) ==

== ENCOUNTER → 2019-11-04 | Outpatient (CLI) | payer MEDICARE, BC | LOC: COL.RAD 12:58 | DX: I62.00 Nontraumatic subdural hemorrhage, unspecified (principal) ==

== ENCOUNTER 2019-12-11 09:35 | Emergency (ER) | payer MEDICARE, BC ==
[~2019-12-11] VITALS: Ht 180.3 cm; Wt 109.5 kg
[2019-12-11 10:22] VITALS: TEMP 98.1
[2019-12-11 11:08] LABS: BASO % 0.3 % (0.0-2.0); EOS # 0.2 (0.0-0.7); EOS % 1.5 % (0-4.0); GRAN # 6.8 (1.4-6.5); GRAN % 65.5 % (42.2-75.2); HEMATOCRIT 42.9 % (42.0-52.0); HEMOGLOBIN 14.4 g/dl (13.5-18.0); LYMPH # 2.1 (1.2-3.4); LYMPH % 20.7 % (20.0-51.0); MEAN CELL VOLUME 93 fl (80.0-100.0); MEAN CORPUSCULAR HEMOGLOBIN 31 pg (27.0-31.0); MEAN CORPUSCULAR HGB CONC 34 g/dl (33.0-37.0); MONO # 1.2 (0.1-0.6); MONO % 11.9 % (1.7-9.3); PLATELET COUNT 178 K/mm3 (130-400); RED BLOOD COUNT 4.63 M/mm3 (4.20-5.60); REDCELL DISTRIBUTION WIDTH-CV 13.8 % (11.5-14.5)
[2019-12-11 11:13] LABS: PROTHROMBIN TIME 11.5 SECONDS (9.7-12.8)
[2019-12-11 11:16] LABS: PARTIAL THROMBOPLASTIN TIME 28.4 SECONDS (26.0-37.0)
[2019-12-11 11:26] LABS: BILIRUBIN,TOTAL 0.8 mg/dL (0.0-1.0); C-REACTIVE PROTEIN 3.5 mg/dL (0.0-0.9); CALCIUM 9.2 mg/dL (8.4-10.2); CREATININE, serum 1.04 (0.66-1.25); MAGNESIUM 2.1 mg/dL (1.6-2.3); POTASSIUM 4.4 mmol/L (3.4-5.0); TOTAL PROTEIN 7.5 gm/dL (6.4-8.2)
[2019-12-11 11:43] LABS: TROPONIN-I < 0.012 ng/mL (0.000-0.035)
[2019-12-11 12:34] LABS: COLLECTION METHOD CLEAN CATCH
[2019-12-11 12:57] LABS: MUCOUS Present /lpf; PH 5 (5-8); SQUAMOUS EPITHELIAL None Seen /hpf; URINE APPEARANCE Hazy; URINE BACTERIA Occasional /hpf; URINE BILIRUBIN Negative (NEGATIVE); URINE BLOOD Negative (NEGATIVE); URINE COLOR Yellow; URINE GLUCOSE Negative (NEGATIVE); URINE KETONE Negative (NEGATIVE); URINE LEUKOCYTE ESTERASE Trace (NEGATIVE); URINE NITRATE Positive (NEGATIVE); URINE PROTEIN(semi-quant) Negative (NEGATIVE); URINE RBC 0-2 /hpf; URINE UROBILINOGEN Negative (NEGATIVE)
[2019-12-11] MEDS ORDERED: OMNICEF 300MG300 MG PO (14:24)
[2019-12-11 14:45] VITALS: BP 144/91; PULSE 59
== END 2019-12-11 14:43 | disposition home or self-care (01) ==
LOC: COL.ER 09:35
PROVIDERS: Emergency Medicine
DX: N39.0 Urinary tract infection, site not specified (principal); K21.9 Gastro-esophageal reflux disease without esophagitis; Z79.82 Long term (current) use of aspirin; Z79.51 Long term (current) use of inhaled steroids; Z79.01 Long term (current) use of anticoagulants; Z95.0 Presence of cardiac pacemaker; Z86.718 Personal history of other venous thrombosis and embolism; Z86.73 Personal history of transient ischemic attack (TIA), and cerebral infarction without residual deficits; Z86.711 Personal history of pulmonary embolism
CPT/HCPCS: J0696

== ENCOUNTER 2020-02-14 15:12 | Outpatient (CLI) | payer MEDICARE, BC ==
--- NOTE | 2020-02-10 09:14 | NUR ---
CALLED FOR ORDER FOR MRI PACEMAKER. DR DAE GRAJEDA [phone]. [facility] [place]
[~2020-02-14 15:12] MED LIST changes: +OMNICEF 300MG300 MG PO
== END 2020-02-17 ==
LOC: COL.RAD
DX: Z01.812 Encounter for preprocedural laboratory examination (principal); M43.12 Spondylolisthesis, cervical region; M47.812 Spondylosis without myelopathy or radiculopathy, cervical region; M51.36 Other intervertebral disc degeneration, lumbar region; Z98.890 Other specified postprocedural states
CPT/HCPCS: A9585

== ENCOUNTER → 2020-05-28 | Outpatient (CLI) | payer MEDICARE, BC | LOC: COL.RAD 15:00 | DX: I62.00 Nontraumatic subdural hemorrhage, unspecified (principal); Z98.890 Other specified postprocedural states ==

== ENCOUNTER → 2020-06-06 | Outpatient (CLI) | payer MEDICARE, BC | LOC: MHCPAIN 15:00 | DX: M47.812 Spondylosis without myelopathy or radiculopathy, cervical region (principal); M54.2 Cervicalgia; M54.5 Low back pain; M96.1 Postlaminectomy syndrome, not elsewhere classified; G89.29 Other chronic pain | CPT/HCPCS: G0463 ==

== ENCOUNTER → 2020-06-11 | Outpatient (CLI) | payer MEDICARE, BC | LOC: MHCPAIN 13:21 | DX: M47.817 Spondylosis without myelopathy or radiculopathy, lumbosacral region (principal); M54.5 Low back pain ==

== ENCOUNTER → 2020-07-04 | Outpatient (CLI) | payer MEDICARE, BC | LOC: MHCPAIN 12:54 | DX: M47.817 Spondylosis without myelopathy or radiculopathy, lumbosacral region (principal); M54.81 Occipital neuralgia; M96.1 Postlaminectomy syndrome, not elsewhere classified; R51.9 Headache, unspecified | CPT/HCPCS: G0463 ==

== ENCOUNTER → 2020-07-05 | Outpatient (CLI) | payer MEDICARE, BC | LOC: MHCPAIN 10:17 | DX: M47.817 Spondylosis without myelopathy or radiculopathy, lumbosacral region (principal); M54.5 Low back pain ==

== ENCOUNTER → 2020-07-11 | Outpatient (CLI) | payer MEDICARE, BC | LOC: MHCPAIN 12:53 | DX: M54.81 Occipital neuralgia (principal); R51.9 Headache, unspecified; M96.1 Postlaminectomy syndrome, not elsewhere classified; G89.29 Other chronic pain | CPT/HCPCS: G0463 ==

== ENCOUNTER → 2020-07-26 | Outpatient (CLI) | payer MEDICARE, BC | LOC: MHCPAIN 08:04 | DX: M47.817 Spondylosis without myelopathy or radiculopathy, lumbosacral region (principal); M96.1 Postlaminectomy syndrome, not elsewhere classified; M54.5 Low back pain | CPT/HCPCS: J2250; J3010 ==

== ENCOUNTER → 2020-08-02 | Outpatient (CLI) | payer MEDICARE, BC | LOC: MHCPAIN 07:53 | DX: M96.1 Postlaminectomy syndrome, not elsewhere classified (principal); M54.5 Low back pain | CPT/HCPCS: J2250; J2310; J3010 ==

== ENCOUNTER → 2020-09-25 | Outpatient (CLI) | payer MEDICARE, BC | LOC: MHCPAIN 09:38 | DX: M47.816 Spondylosis without myelopathy or radiculopathy, lumbar region (principal); M96.1 Postlaminectomy syndrome, not elsewhere classified; M53.3 Sacrococcygeal disorders, not elsewhere classified; G89.29 Other chronic pain | CPT/HCPCS: G0463 ==

== ENCOUNTER → 2021-01-29 | Outpatient (CLI) | payer MEDICARE, BC | LOC: MHCPAIN 10:48 | DX: M47.817 Spondylosis without myelopathy or radiculopathy, lumbosacral region (principal); M54.5 Low back pain; M53.3 Sacrococcygeal disorders, not elsewhere classified; M96.1 Postlaminectomy syndrome, not elsewhere classified | CPT/HCPCS: G0463 ==

== ENCOUNTER → 2021-02-11 | Outpatient (CLI) | payer MEDICARE, BC | LOC: MHCPAIN 09:46 | DX: M47.816 Spondylosis without myelopathy or radiculopathy, lumbar region (principal); M96.1 Postlaminectomy syndrome, not elsewhere classified; M54.16 Radiculopathy, lumbar region | CPT/HCPCS: J1100; Q9967 ==

== ENCOUNTER → 2021-02-27 | Outpatient (CLI) | payer MEDICARE, BC | LOC: MHCPAIN 11:05 | DX: M47.817 Spondylosis without myelopathy or radiculopathy, lumbosacral region (principal); M53.3 Sacrococcygeal disorders, not elsewhere classified; M54.5 Low back pain; M96.1 Postlaminectomy syndrome, not elsewhere classified | CPT/HCPCS: G0463 ==

== ENCOUNTER → 2021-03-20 | Outpatient (CLI) | payer MEDICARE, BC | LOC: MHCPAIN 10:32 | DX: M47.817 Spondylosis without myelopathy or radiculopathy, lumbosacral region (principal); M54.5 Low back pain; M54.2 Cervicalgia; M96.1 Postlaminectomy syndrome, not elsewhere classified; R51.9 Headache, unspecified | CPT/HCPCS: G0463 ==

== ENCOUNTER 2021-05-28 11:54 | Inpatient (IN) | payer MEDICARE, BC ==
[~2021-05-28] VITALS: Ht 180.3 cm; Wt 115.3 kg
[2021-05-28] VITALS (103 sets, daily range): BP systolic 171–204; BP diastolic 86–99; PULSE 61; TEMP 98.2; O2SAT 89–99
[2021-05-28 12:48] LABS: BASO % 0.5 % (0.0-2.0); EOS # 0.2 K/mm3 (0.0-0.7); EOS % 2.3 % (0-4.0); GRAN # 4.6 K/mm3 (1.4-6.5); GRAN % 59.3 % (42.2-75.2); HEMATOCRIT 43.7 % (42.0-52.0); HEMOGLOBIN 14.6 g/dl (13.5-18.0); LYMPH # 1.8 K/mm3 (1.2-3.4); LYMPH % 23.4 % (20.0-51.0); MEAN CELL VOLUME 96 fl (80.0-100.0); MEAN CORPUSCULAR HEMOGLOBIN 32 pg (27.0-31.0); MEAN CORPUSCULAR HGB CONC 33 g/dl (33.0-37.0); MONO # 1.1 K/mm3 (0.1-0.6); MONO % 14.1 % (1.7-9.3); PLATELET COUNT 142 K/mm3 (130-400); RED BLOOD COUNT 4.55 M/mm3 (4.20-5.60); REDCELL DISTRIBUTION WIDTH-CV 13.9 % (11.5-14.5)
[2021-05-28 13:02] LABS: ALBUMIN 3.6 gm/dL (3.4-4.8); BILIRUBIN,TOTAL 0.6 mg/dL (0.2-1.2); CALCIUM 9.2 mg/dL (8.4-10.2); CREATININE, serum 1.19 mg/dL (0.72-1.25); POTASSIUM 4.5 mmol/L (3.5-4.5); TOTAL PROTEIN 7.3 gm/dL (6.2-8.1)
[2021-05-28 13:10] LABS: TROPONIN-I 0.079 ng/mL (0.00-0.033)
[2021-05-28 15:02] LABS: PROTHROMBIN TIME 11.2 SECONDS (9.7-12.8)
[2021-05-28] MEDS ORDERED: SYNTHROID0.2 MG/TAB PO (16:54)
[2021-05-28] MEDS ORDERED: SYNTHROID 0.0.025 MG PO (16:55)
[2021-05-28] MEDS ORDERED: COSOPT 2%-0.5%10 ML OU (16:58)
[2021-05-28] MEDS ORDERED: KEPPRA 500MG500 MG PO (16:58)
[2021-05-28] MEDS ORDERED: COLESTID 1GM1 G PO (17:00)
--- NOTE | 2021-05-28 19:47 | NUR ---
Arrived to ICU 6. Patient alert and orientated. Assessment complete and charted. Denies needs. All questions answered. Call light in reach. Bed alarm on.
--- NOTE | 2021-05-28 20:10 | NUR ---
Patient called to updated home medication list. Amalia LILLY notified of changes. Updated patient on plan of care.
[2021-05-29] VITALS (51 sets, daily range): BP systolic 133–142; BP diastolic 48–88; PULSE 60–65; TEMP 97.8–98.5; O2SAT 90–97
[2021-05-29 05:30] LABS: BASO % 0.1 % (0.0-2.0); GRAN # 8.7 K/mm3 (1.4-6.5); GRAN % 83.5 % (42.2-75.2); HEMATOCRIT 42.5 % (42.0-52.0); HEMOGLOBIN 14.5 g/dl (13.5-18.0); LYMPH # 1.3 K/mm3 (1.2-3.4); LYMPH % 12.3 % (20.0-51.0); MEAN CELL VOLUME 94 fl (80.0-100.0); MEAN CORPUSCULAR HEMOGLOBIN 32 pg (27.0-31.0); MEAN CORPUSCULAR HGB CONC 34 g/dl (33.0-37.0); MEAN PLATELET VOLUME 10.3 fl (7.4-10.4); MONO # 0.4 K/mm3 (0.1-0.6); MONO % 3.5 % (1.7-9.3); PLATELET COUNT 150 K/mm3 (130-400); RED BLOOD COUNT 4.54 M/mm3 (4.20-5.60); REDCELL DISTRIBUTION WIDTH-CV 13.9 % (11.5-14.5)
[2021-05-29 05:36] LABS: ALBUMIN 3.5 gm/dL (3.4-4.8); CALCIUM 9.2 mg/dL (8.4-10.2); CREATININE, serum 1.03 mg/dL (0.72-1.25); MAGNESIUM 1.9 mg/dL (1.6-2.6); PHOSPHOROUS 3.3 mg/dL (2.3-4.7); POTASSIUM 4.3 mmol/L (3.5-4.5)
--- NOTE | 2021-05-29 06:03 | NUR ---
Patient required x1 dose of hydralazine for blood pressure control. Otherwise uneventful night.
--- NOTE | 2021-05-29 07:05 | NUR ---
Report given to BRITTANY Pack
--- NOTE | 2021-05-29 10:35 | NUR ---
Initial visit; Patient and is thanked Alarm Signaler for looking in on him and offering God's blessings and to keep him in her prayers.
[2021-05-29] MEDS ORDERED: LOVENOX120 MG/0.8 SQ (14:43)
--- NOTE | 2021-05-29 15:26 | NUR ---
Pt left with EMS team to transfer pt to [facility]. Report called to BRITTANY Holland at [facility] Spouse at bedside, all belongings with
--- NOTE | 2021-05-29 20:09 | NUR ---
bridge ironworker met with patient and spouse to discuss discharge planning. Patient lives with spouse, Sameera west#[phone]. Spouse states that she is patient's caregiver and that he has utilized home health and skilled care at [facility] previously. Spouse stated that if patient required skilled care upon discharge they desired [facility]. Patient's primary care provider is Dr Ford and they use [facility]. Spouse states that they have medication coverage. Patient is transferring to [facility] this date.
== END 2021-05-29 15:25 | disposition critical access hospital, planned readmission (94) | DRG 175 ==
LOC: COL.ER 11:54 → ICU 15:59
PROVIDERS: Personal Emergency Response Attendant; ADMIT Internal Medicine
DX: I26.92 Saddle embolus of pulmonary artery without acute cor pulmonale (principal); J96.01 Acute respiratory failure with hypoxia; E87.2 Acidosis; K21.9 Gastro-esophageal reflux disease without esophagitis; N28.1 Cyst of kidney, acquired; E89.0 Postprocedural hypothyroidism; I10 Essential (primary) hypertension; Z95.0 Presence of cardiac pacemaker; Z86.718 Personal history of other venous thrombosis and embolism; Z79.82 Long term (current) use of aspirin
CPT/HCPCS: 99239; J0360; J1644; J1650; J2930; Q9967

== ENCOUNTER 2021-09-22 17:38 | Emergency (ER) | payer MEDICARE, BC ==
[~2021-09-22] VITALS: Ht 180.3 cm; Wt 118.6 kg
[~2021-09-22 17:38] MED LIST changes: +COLESTID 1GM1 G PO; +COSOPT 2%-0.5%10 ML OU; +KEPPRA 500MG500 MG PO; +LOVENOX120 MG/0.8 SQ; +SYNTHROID 0.0.025 MG PO
[2021-09-22 17:44] VITALS: TEMP 98.2
[2021-09-22 18:00] LABS: BASO # 0.1 K/mm3 (0.0-0.2); BASO % 0.8 % (0.0-2.0); EOS # 0.2 K/mm3 (0.0-0.7); EOS % 3.1 % (0.0-4.0); GRAN # 3.2 K/mm3 (1.4-6.5); GRAN % 48.3 % (42.2-75.2); HEMATOCRIT 44.5 % (42.0-52.0); LYMPH # 2.3 K/mm3 (1.2-3.4); LYMPH % 35.1 % (20.0-51.0); MEAN CELL VOLUME 90 fl (80.0-100.0); MEAN CORPUSCULAR HEMOGLOBIN 30 pg (27-31); MEAN CORPUSCULAR HGB CONC 34 g/dl (33.0-37.0); MEAN PLATELET VOLUME 9.4 fl (7.4-10.4); MONO # 0.8 K/mm3 (0.1-0.6); MONO % 12.4 % (1.7-9.3); PLATELET COUNT 228 K/mm3 (130-400); RED BLOOD COUNT 4.93 M/mm3 (4.20-5.60); REDCELL DISTRIBUTION WIDTH-CV 13.2 % (11.5-14.5)
[2021-09-22 18:05] LABS: INR 1.1 (0.8-3.0); PROTHROMBIN TIME 12.1 SECONDS (9.7-12.8)
[2021-09-22 18:16] LABS: ALBUMIN 3.5 gm/dL (3.4-4.8); BILIRUBIN,TOTAL 0.3 mg/dL (0.2-1.2); CALCIUM 9.4 mg/dL (8.4-10.2); CREATININE, serum 1.2 mg/dL (0.72-1.25); POTASSIUM 4.3 mmol/L (3.5-4.5); TOTAL PROTEIN 7.4 gm/dL (6.2-8.1)
[2021-09-22] MEDS ORDERED: VALTREX1 GM PO (19:34)
[2021-09-22] MEDS ORDERED: PREDNISONE20 MG PO (19:34)
[2021-09-22 19:45] VITALS: BP 189/103; PULSE 61
== END 2021-09-22 19:45 | disposition home or self-care (01) ==
LOC: COL.ER 17:38
PROVIDERS: Emergency Medicine
DX: G51.0 Bell's palsy (principal); Z86.718 Personal history of other venous thrombosis and embolism; Z79.01 Long term (current) use of anticoagulants
CPT/HCPCS: J7512

== ENCOUNTER 2021-09-30 08:51 | Emergency (ER) | payer MEDICARE, BC ==
[~2021-09-30] VITALS: Ht 180.3 cm; Wt 118.2 kg
[~2021-09-30 08:51] MED LIST changes: +VALTREX1 GM PO
[2021-09-30 08:53] VITALS: TEMP 97.6
[2021-09-30 09:35] LABS: HEMATOCRIT 44.5 % (42.0-52.0); HEMOGLOBIN 14.6 g/dl (13.5-18.0); MEAN CELL VOLUME 92 fl (80.0-100.0); MEAN CORPUSCULAR HEMOGLOBIN 30 pg (27-31); MEAN CORPUSCULAR HGB CONC 33 g/dl (33.0-37.0); MEAN PLATELET VOLUME 9.9 fl (7.4-10.4); PLATELET COUNT 215 K/mm3 (130-400); RED BLOOD COUNT 4.86 M/mm3 (4.20-5.60); REDCELL DISTRIBUTION WIDTH-CV 14.2 % (11.5-14.5)
[2021-09-30 09:54] LABS: BILIRUBIN,TOTAL 0.4 mg/dL (0.2-1.2); CALCIUM 8.4 mg/dL (8.4-10.2); CREATININE, serum 1.35 mg/dL (0.72-1.25); POTASSIUM 4.1 mmol/L (3.5-4.5); TOTAL PROTEIN 6.3 gm/dL (6.2-8.1)
[2021-09-30 10:10] LABS: EOSINOPHIL 2 % (0-4); HYPOCHROMIA 1+; LYMPHOCYTE 26 % (20.0-51.0); NEUTROPHILS 68 % (42.0-75.2); PLATELET ESTIMATE NORMAL (NORMAL)
[2021-09-30] MEDS ORDERED: KEPPRA750 MG PO (11:29)
[2021-09-30 12:13] VITALS: BP 107/67; PULSE 60
== END 2021-09-30 12:25 | disposition home or self-care (01) ==
LOC: COL.ER 08:51
PROVIDERS: Personal Emergency Response Attendant
DX: R56.9 Unspecified convulsions (principal); Z88.8 Allergy status to other drugs, medicaments and biological substances
CPT/HCPCS: J1953